=== PATIENT | female | born 1975 | race American Indian/Alaskan Native ===

== ENCOUNTER 2017-07-20 16:34 | Emergency (ER) | payer MEDICAID, OTHER ==
[2017-07-20 16:45] VITALS: BP 128/90
[2017-07-20] MEDS ORDERED: MOTRIN PO ONE (17:42)
--- NOTE | 2017-07-20 17:53 | Emergency Department Report ---
Upper Extremity - HPI Chief Complaint: Extremity Injury, Upper Stated Complaint: LT SHOULDER PAIN Time Seen by Provider: 07/20/17 17:28 Upper Extremity: Left Shoulder Occurred When: >5 Days (1 month) Symptoms: Yes Pain with Movement (pain with shoulder abduction), No Deformity, No Limited Range of Movement, No Numbness, No Weakness, No Swelling, No Bruising /Ecchymosis, No Laceration or Abrasion Other History: 41-year-old female past medical history none presents with complaint of one month of left shoulder pain. Patient denies any direct trauma denies any specific action where she felt direct shoulder pain. States that she has shoulder pain when she lifts up her left arm. Patient denies any fevers chills falls or blunt trauma to shoulder. Denies any chest pain palpitations shortness of breath diaphoresis nausea or vomiting. Patient denies any redness overlying skin or cellulitis. Patient is visibly ranging her left shoulder on exam. Awake alert and oriented 3 not in acute distress and nontoxic appearing. ED Review of Systems ROS: Stated complaint: LT SHOULDER PAIN Other details as noted in HPI Constitutional: denies: chills, fever Eyes: denies: eye pain, eye discharge, vision change ENT: denies: ear pain, throat pain Respiratory: denies: cough, shortness of breath, wheezing Cardiovascular: denies: chest pain, palpitations Endocrine: no symptoms reported Gastrointestinal: denies: abdominal pain, nausea, diarrhea Genitourinary: denies: urgency, dysuria, discharge Musculoskeletal: as per HPI, arthralgia. denies: back pain, joint swelling Skin: denies: rash, lesions Neurological: denies: headache, weakness, paresthesias Psychiatric: denies: anxiety, depression Hematological/Lymphatic: denies: easy bleeding, easy bruising ED Past Medical Hx - Past Medical History Previous Medical History?: No Hx Hypertension: No Hx Congestive Heart Failure: No Hx Diabetes: No Hx Deep Vein Thrombosis: No Hx Renal Disease: No Hx Sickle Cell Disease: No Hx Seizures: No Hx Asthma: No Hx COPD: No Hx HIV: No - Surgical History Additional Surgical History: - Social History Smoking Status: Never Smoker Substance Use Type: Alcohol - Medications Home Medications: Home Medications Medication Instructions Recorded Confirmed Last Taken Type Docusate Sodium [Colace] 100 mg PO BID PRN #60 capsule 12/24/15 Unknown Rx Ibuprofen [Motrin] 800 mg PO Q8HR PRN #30 tablet 12/24/15 Unknown Rx Lidocain2.5%/Prilocai2.5% [Emla] 1 applic TP ONCE #1 tube 12/24/15 Unknown Rx Caplet 1 day PO 24XD 12/24/15 12/24/15 12/23/15 09:00 History oxyCODONE /ACETAMINOPHEN [Percocet 2 tab PO Q4HR PRN #30 tab 12/24/15 Unknown Rx 5/325] Upper Extremity Exam - Exam General: Vital signs noted. No distress. Alert and acting appropriately. Head and Torso: No HEENT Abnormality, No Neck Tenderness, No Chest/Lungs Abnormality, No Abdominal Tenderness, No Back Tenderness Shoulder Exam: Yes Shoulder Tenderness (left-sided shoulder pain with shoulder abduction above 90), Yes Normal Range of Motion in Shoulder (shoulder flexion extension internal and external rotation intact on exam), No Clavicle Tenderness , No Shoulder Deformity, No AC Joint Tenderness Arm Exam: No Arm/Humerus Tenderness, No Arm Deformity Elbow: No Elbow Tenderness, No Normal Range of Motion in Elbow, No Elbow Deformity Forearm: No Forearm Tenderness, No Forearm Deformity, No Pain with Pronation, No Pain with Supination Wrist: Yes Normal ROM in Wrist, No Wrist Tenderness, No Wrist Deformity, No Snuffbox Tenderness, No Pain with Axial Thumb Compression Hand: Yes Normal ROM in Digit(s), No Hand Tenderness, No Hand Deformity, No Digit Tenderness, No Digit(s) Deformity, No Tendon Dysfunction CMS Exam: Yes Normal Distal Pulses (distal capillary refill less than one second all fingers distal radial and ulnar pulses intact on palpation), No Broken Skin, No Normal Capillary Refill, No Normal Distal Sensation Front/Back of Body, Lg (Color): 1 - Left shoulder pain here as per patient ED Course Vital Signs 07/20/17 16:41 Temperature 98.3 F Pulse Rate 79 Respiratory 16 Rate Blood Pressure 128/90 O2 Sat by Pulse 100 Oximetry ED Medical Decision Making - Medical Decision Making A/P: Left shoulder pain 1-I discussed the patient's symptoms with her. I suggested to the patient we can obtain an x-ray to ascertain the character there is sticks of the left shoulder joint. Patient stated that she is not interested in an x-ray at this time. As patient has full range of motion with no neurovascular deficits in left upper extremity I explained to patient that it is not necessary to obtain emergent imaging. I will refer patient to outpatient orthopedics and primary care. Patient states that she is not interested in any medicines for her pain. Pts daughter was present for this conversation. 2-left shoulder internal and external rotation shoulder abduction and abduction intact. There is no visible swelling no skin changes and no range of motion deficits in the shoulder elbow forearm wrist and hand or fingers. I will not give patient shoulder immobilizer or sling to mitigate frozen shoulder syndrome. 3-patient is adamant that she is concerned about a blood clot in her left shoulder. I explained to the patient that because she has no swelling of her limbs no history of DVTs and does not meet any criteria or physical examination features for DVT that it is extremely unlikely. I will give patient the order form for an outpatient left upper extremity duplex/doppler . I advised the patient that it is very likely to be negative however for her peace of mind I will provide her with the order. Well Score 0 points Low risk group for DVT. Unlikely according to [facility] DVT studies. 4-follow up with orthopedics and primary care Critical care attestation.: If time is entered above; I have spent that time in minutes in the direct care of this critically ill patient, excluding procedure time. ED Disposition Clinical Impression: Left shoulder pain Qualifiers: Chronicity: acute Qualified Code(s): M25.512 - Pain in left shoulder Disposition: TO HOME OR SELFCARE Is pt being admited?: No Does the pt Need Aspirin: No Condition: Stable Instructions: Shoulder Bursitis (ED), Rotator Cuff Tendinitis (ED), Arthralgia (ED) Referrals: [facility] [Provider Group] - 3-5 Days [facility] [Outside] - 3-5 Days [facility] [Provider Group] - 3-5 Days Forms: Accompanied Note, Work/School Release Form(ED) Time of Disposition: 17:54
== END 2017-07-20 18:54 | disposition home or self-care (01) ==
LOC: ED 16:34
DX: M25.512 Pain in left shoulder (principal)
CPT/HCPCS: 99282